=== PATIENT | male | born 1945 | race African-American/Black ===

== ENCOUNTER 2019-07-23 11:55 | Day surgery (SDC) | payer MEDICARE, MEDICAID ==
[~2019-07-23 11:55] MED LIST: FENTANYL CITRATE INJ/PF 100 MCG/2 ML AMPUL ONE; KETAMINE HCL INJ 500 MG/10 ML VIAL ONE; MIDAZOLAM 2 MG/2 ML INJ ONE; ONDANSETRON HCL INJ/PF 4 MG/2 ML SDV ONE; PROPOFOL INJ 200 MG/20 ML VIAL IV ONE
[2019-07-23] MEDS ORDERED: CEFAZOLIN 1 GM/D5W RTU 1 GM/50 ML RTUPB IV ONE (12:08)
[2019-07-23] MEDS ORDERED: CEFAZOLIN 1 GM/D5W RTU 1 GM/50 ML RTUPB IV PRN (12:08)
[2019-07-23 12:32] LABS: HEMATOCRIT 34.7 % (37.9-51.0); HEMOGLOBIN 11.5 g/dL (13.5-17.0); MEAN CORPUSCULAR VOLUME 82 fl (80-97); PLATELET COUNT 241 10^3/uL (150-450); RED BLOOD COUNT 4.24 10^6/uL (4.35-5.55); RED CELL DISTRIBUTION WIDTH 15.2 % (11.5-14.0); WHITE BLOOD COUNT 5.3 10^3/uL (4.0-10.5)
[2019-07-23 12:48] LABS: ANION GAP 8 (5-19); BLOOD UREA NITROGEN 15 mg/dL (7-20); CALCIUM 9.1 mg/dL (8.4-10.2); CARBON DIOXIDE 31 mmol/L (22-30); CHLORIDE 101 mmol/L (98-107); GLUCOSE 105 mg/dL (75-110); POTASSIUM 4.1 mmol/L (3.6-5.0)
--- NOTE | 2019-07-23 13:05 | RADIOLOGY REPORT (SQ) ---
EXAM DESCRIPTION: CHEST SINGLE VIEW COMPLETED DATE/TIME: 07/23/2019 12:53 pm REASON FOR STUDY: preop COMPARISON: None. EXAM PARAMETERS: NUMBER OF VIEWS: One view. TECHNIQUE: An AP view of the chest was obtained. RADIATION DOSE: NA LIMITATIONS: None. FINDINGS: LUNGS AND PLEURA: The patient is rotated. There is no consolidation, pleural effusion or pneumothorax. MEDIASTINUM AND HILAR STRUCTURES: No mediastinal or hilar contour abnormality. HEART AND VASCULAR STRUCTURES: Th cardiac silhouette and pulmonary vasculature are within normal limi ts given the low inspiratory lung volumes. BONES: No acute findings. HARDWARE: None in the chest. OTHER: The transverse colon is air-filled and dilated. IMPRESSION: Low inspiratory lung volumes without a superimposed acute cardiopulmonary process. TECHNICAL DOCUMENTATION: JOB ID: [id number] 2010 [employer]- All Rights Reserved Reading location - IP/workstation name: [email or web address]
[2019-07-23] MEDS ORDERED: LIDOCAINE 1% INJ-PF (10 MG/ML) 30 ML SDV ONE (13:15)
[2019-07-23] MEDS ORDERED: BUPIVACAINE HCL 0.25 % INJ/PF (2.5 MG/1 ML) 30 ML VIAL ONE (13:15)
[2019-07-23] MEDS ORDERED: SILVER SULFADIAZINE 1% CREAM 25 GM ONE (13:16)
[2019-07-23] MEDS ORDERED: BACITRACIN INJ 50,000 UNIT VIAL ONE (13:16)
[2019-07-23] MEDS ORDERED: COLLAGENASE CLOSTRIDIUM HIST. OINT 30 GM ONE (13:16)
--- NOTE | 2019-07-23 13:24 | PDOC H&P ---
General Chief Complaint: This patient has as her chronic left hip wound with a very small opening. The underlying wound is very large. Based on this recommendations are to open the area so as to get access for the wound. - Diagnosis (1) Chronic wound of extremity Is this a Current Diagnosis?: Yes Past Medical History Neurological Medical History: Reports: Other - Dementia Musculoskeltal Medical History: Reports: Arthritis Family History Parental Family History Reviewed: No Children Family History Reviewed: No Sibling(s) Family History Reviewed.: No Social History Smoking Status: Unknown if Ever Smoked Physical Exam Additional comments: Constitutional: Well-developed small stature -[place] gentleman. No apparent acute distress, easily agitated when addressed. Eyes: Mucous membranes pink and moist, pupils equal and reactive to light. Conjunctiva normal. Cornea normal. ENT: Hearing grossly normal. External pinna normal to inspection. Edentulous. Tongue normal to inspection. Cardiac: Heart sounds 1 and 2 normal, no murmurs. Respiratory: breath sounds are present bilaterally, normal. Normal respiratory effort. Skin: I left hip wound area with a pinpoint opening medium to large subcutaneous area. Psychiatric: Judgment, memory, insight seem suspect, questionable,. Mood is pleasant and appropriate easily agitated by the presence of strangers. Extremities: Upper extremities show normal range of movement, some spasticity and serpentine movements. Capillary refill normal. No cyanosis noted. Some o muscle wasting noted. Impression/Plan Plan: In this patient with a small opening in the large space of the left hip area, opening is recommended in order to allow for addressing the underlying pathology. Risks including infection, bleeding, heart, lung complications gone over with his family. Overall their questions and concerns in the agreed to proceed. They are concerned that he not be too heavily anesthetized. I believe this can be done under local anesthesia with some sedation.
--- NOTE | 2019-07-23 13:27 | EKG REPORT ---
SEVERITY:- BORDERLINE ECG - SINUS RHYTHM BORDERLINE PROLONGED QT INTERVAL : Confirmed by: Rodney Lora MD 23-Jul-2019 13:27:07
[2019-07-23] MEDS ORDERED: BACITRACIN INJ 50,000 UNIT VIAL IR ONE (13:44)
[2019-07-23] MEDS ORDERED: LIDOCAINE 1% INJ-PF (10 MG/ML) 30 ML SDV INJ ONE (13:45)
[2019-07-23] MEDS ORDERED: BUPIVACAINE HCL 0.25 % INJ/PF (2.5 MG/1 ML) 30 ML VIAL INJ ONE (13:45)
[2019-07-23] MEDS ORDERED: MEPERIDINE HCL/PF INJ 25 MG/1 ML DISP.SYRIN IV PRN (13:48)
[2019-07-23] MEDS ORDERED: ONDANSETRON HCL INJ/PF 4 MG/2 ML SDV IV PRN (13:48)
[2019-07-23] MEDS ORDERED: DIPHENHYDRAMINE HCL 50 MG/ML VIAL IV PRN (13:48)
[2019-07-23] MEDS ORDERED: PROMETHAZINE HCL INJ 25 MG/1 ML VIAL IV PRN ×2 (13:48)
[2019-07-23] MEDS ORDERED: FENTANYL CITRATE INJ/PF 100 MCG/2 ML AMPUL IV PRN (13:48)
--- NOTE | 2019-07-23 13:54 | Discharge Summary ---
Discharge Summary (SDC) - Discharge Final Diagnosis: 1.Chronic wound of the left hip, pressure. 2. Dementia. 3. Frailty. Date of Surgery: 07/23/19 Discharge Date: 07/23/19 Condition: Poor Treatment or Instructions: Discharge home [after recovery per ASU criteria]. Diet , as tolerated, when fully awake advance as tolerated. Activities within moderation encouraged. Follow up in my office by appointment at wound clinic on Tuesday of this week. Call for appointment. Leave wounds [covered], [keep clean and dry, until office visit in 1 week]. Meds per med rec. May shower [in 48 hrs], [try to keep operated area as dry as possible]. Referrals: TULIO MARLOW FNP [Primary Care Provider] - Discharge Diet: As Tolerated Respiratory Treatments at Home: Deep Breathing/Coughing Discharge Activity: Activity As Tolerated Report the Following to Your Physician Immediately: Shortness of Breath, Unusual Bleeding
--- NOTE | 2019-07-23 13:58 | Operative Report ---
Operative Report DATE OF SURGERY: 07/23/19 PREOPERATIVE DIAGNOSIS: 1. 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 2. D ementia. 3. Frailty. POSTOPERATIVE DIAGNOSIS: 1. 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 2. Dementia. 3. Frailty. OPERATION: Debridement of left hip area pressure ulcer. SURGEON: MELISSA MEDEIROS SHEET PILE HAMMER OPERATOR: None. ANESTHESIA: LMAC TISSUE REMOVED OR ALTERED: Nonviable skin subcutaneous tissue and fascia. COMPLICATIONS: None. ESTIMATED BLOOD LOSS: 5 mL. INTRAOPERATIVE FINDINGS: Of a large area of stage I pressure effect over the left hip area. Superior to it is an opening about 2 mm in diameter which is enlarged to about 1.5 cm in diameter. This communicates with it deep fascial or subcutaneous pocket or possibly bursa which is quite large and palpable to well beyond the bony prominence of the hip, by hemostat. PROCEDURE: PROCEDURE: The hip area was prepared with [Betadine] and draped out with sterile linen. After the"universal time-out", in which it was confirmed that the patient [did receive antibiotic], the procedure commenced. The patient was appropriately anesthetized. The wound was probed. Cultures were now taken and sent. The wound was debrided of non viable tissue using[scalpel and spot and cautery with removal of loose debris, as well. The wound was irrigated with [Peroxide] .The wound was now irrigated with saline and [Surgicel] placed within it, dressed with [Kerlix] and the procedure concluded.
[2019-07-23 15:23] VITALS: BP 115/69
== END 2019-07-23 15:15 | disposition home or self-care (01) ==
LOC: OROUT 11:55
PROVIDERS: ATTEND Surgery
DX: L89.224 Pressure ulcer of left hip, stage 4 (principal); F03.90 Unspecified dementia, unspecified severity, without behavioral disturbance, psychotic disturbance, mood disturbance, and anxiety; M06.9 Rheumatoid arthritis, unspecified; Z01.818 Encounter for other preprocedural examination
CPT/HCPCS: 1250; 36415; 71045; 80048; 85027; 87070; 87075; 87077; 87186; 87205; 93005; 93010; J0690; J2250; J2405; J2704; J3010; J3490

== ENCOUNTER → 2019-08-17 | Outpatient (CLI) | payer MEDICARE, MEDICAID ==
[2019-08-17 15:25] LABS: ALBUMIN 4.3 g/dL (3.5-5.0); ALKALINE PHOSPHATASE 95 U/L (38-126); ANION GAP 9 (5-19); ASPARTATE AMINO TRANSFERASE 37 U/L (17-59); BILIRUBIN,TOTAL 0.5 mg/dL (0.2-1.3); BLOOD UREA NITROGEN 20 mg/dL (7-20); CALCIUM 9.8 mg/dL (8.4-10.2); CARBON DIOXIDE 30 mmol/L (22-30); CHLORIDE 104 mmol/L (98-107); GLUCOSE 91 mg/dL (75-110); POTASSIUM 4.7 mmol/L (3.6-5.0); TOTAL PROTEIN 9.2 g/dL (6.3-8.2)
[2019-08-17 15:27] LABS: ABSOLUTE BASOPHILS # (AUTO) 0.1 10^3/uL (0.0-0.2); ABSOLUTE EOSINOPHILS # (AUTO) 0.1 10^3/uL (0.0-0.6); ABSOLUTE LYMPHOCYTES (AUTO) 1.9 10^3/uL (0.5-4.7); ABSOLUTE MONOCYTES (AUTO) 0.4 10^3/uL (0.1-1.4); ABSOLUTE NEUT (AUTO) 2.4 10^3/uL (1.7-8.2); BASOPHILS % (AUTO) 1.2 % (0-2); EOSINOPHILS % (AUTO) 1.9 % (0-6); HEMATOCRIT 36.7 % (37.9-51.0); HEMOGLOBIN 11.9 g/dL (13.5-17.0); LYMPHOCYTES % (AUTO) 39.7 % (13-45); MEAN CORPUSCULAR HGB CONC 32.5 g/dL (32.0-36.0); MEAN CORPUSCULAR VOLUME 83 fl (80-97); MONOCYTES % (AUTO) 7.6 % (3-13); PLATELET COUNT 251 10^3/uL (150-450); RED BLOOD COUNT 4.41 10^6/uL (4.35-5.55); RED CELL DISTRIBUTION WIDTH 16.4 % (11.5-14.0); SEGMENTED NEUTROPHILS % (AUTO) 49.6 % (42-78); TOTAL CELLS COUNTED % (AUTO) 100 %; WHITE BLOOD COUNT 4.8 10^3/uL (4.0-10.5)
[2019-08-17 15:29] LABS: C-REACTIVE PROTEIN < 5.0 mg/L (<10.0)
== END ==
LOC: OD 14:01
PROVIDERS: ATTEND Nurse Practitioner Family
DX: L89.229 Pressure ulcer of left hip, unspecified stage (principal)
CPT/HCPCS: 36415; 80053; 85025; 85652; 86140